=== PATIENT | male | born 1960 | race Two or more races ===

== ENCOUNTER 2025-02-28 06:30 | Day surgery (SDC) | payer OTHER, SELFPAY ==
--- NOTE | 2025-02-26 14:28 | ESHP_ITS ---
RE: TANNA VILLASEÑOR : 1960 DATE OF ADMISSION: 02/28/2025 HISTORY OF PRESENT ILLNESS: The patient is a 64-year-old gentleman who was referred to me with history of prostatism and prostatic obstruction. He has nocturia 1-2 times. Urinary flow is fair. No burning. No blood in the urine. PAST SURGICAL HISTORY: None. SOCIAL HISTORY: He has 4 children. PAST MEDICAL HISTORY: He is diabetic and he does not have any history of hypertension. HOME MEDICATIONS: He takes; 1. Thyroid medication. 2. Metformin. 3. Cholesterol. ALLERGIES: NONE KNOWN. PHYSICAL EXAMINATION: HEENT: Normal. NECK: Supple. LUNGS: Clear. CARDIOVASCULAR: Heart sounds are normal. ABDOMEN: Soft without any organomegaly. No guarding. No rigidity. EXTREMITIES: Normal. GENITOURINARY: Phallus is normal. Testes are down in the scrotum. RECTAL: Moderately enlarged prostate with the right lobe mildly firm. LABORATORY DATA: His PSA is 9.2. IMPRESSION: 1. Prostatism. 2. Prostatic obstruction. 3. Elevated PSA of 9.2. PLAN: Cystoscopy and transrectal prostatic ultrasound with ultrasound-guided prostatic needle biopsy. Planned procedure, risks, and complications have been discussed with the patient. The patient has understood them and agreed to proceed. Thank you very much for your kind referral. cc: MARIA ELENA Davis DT: 13:38:43 TT: 14:27:00 Ref: [id number] - TID: [id number]
--- NOTE | 2025-02-27 06:48 | EKG_ITS ---
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
[2025-02-27 07:03] VITALS: BMI 32.5
[2025-02-27 07:50] LABS: Collection Type, Urine Clean Catch; Squamous Epithelial Cell,Urine 0 /hpf (0-5)
[2025-02-27 09:04] LABS: Bilirubin,Urine Negative (Negative); Blood,Urine Trace (Negative); Clarity,Urine Clear (Clear/Hazy); Color,Urine Lt-Yellow (Lt Yel-Yel); Glucose, Urine Negative (Negative); Hyaline Casts,Urine < 1 /hpf (0-1); Ketones,Urine Negative (Negative); Leukocyte Esterase,Urine Negative (Negative); Nitrite,Urine Negative (Negative); Protein,Urine Negative (Neg - Trace); RBC,Urine 4 /hpf (0-3); Specific Gravity,Urine 1.025 (1.001-1.035); Urobilinogen,Urine Negative mg/dL (0.0-1.0); WBC,Urine 1 /hpf (0-5)
[2025-02-27 09:05] LABS: Basophils # (Auto) 0.1 Thou/mm3 (0.0-0.2); Basophils % (Auto) 1 % (0-2.5); Eosinophils # (Auto) 0.1 Thou/mm3 (0.0-0.5); Eosinophils % (Auto) 1 % (0-10); Hemoglobin 15.2 g/dL (13.5-16.0); Immature Granulocytes % (Auto) 1 % (0-0); Immature Granulocytes Auto 0.07 Thou/mm3 (0.00-0.00); Lymphocytes % (Auto) 39 % (10-50); Mean Corpuscular HGB Conc 33.8 g/dl (31.0-37.0); Mean Corpuscular Volume 92 fL (80-100); Monocytes # (Auto) 0.6 Thou/mm3 (0.0-0.8); Monocytes % (Auto) 7 % (0-12); Neutrophils # (Auto) 3.9 Thou/mm3 (1.8-7.7); Neutrophils % (Auto) 51 % (37-80); Nucleated Red Blood Cell % 0 /100 WBC (0); Platelet Count 238 Thou/mm3 (140-440); RDW Standard Deviation 43.8 fL (35.1-43.9); White Blood Count 7.6 Thou/mm3 (3.8-10.6)
[2025-02-27 09:19] LABS: Alanine Aminotransferase 26 U/L (10-49); Albumin, Serum 4.7 gm/dL (3.4-4.8); Albumin/Globulin Ratio 1.6 (1.2-2.2); Alkaline Phosphatase 48 U/L (46-116); Anion Gap 8 (7-16); Aspartate Amino Transferase 25 U/L (0-34); BUN/Creatinine Ratio 24 Ratio (12-20); Bilirubin,Total 1.1 mg/dL (0.3-1.2); Blood Urea Nitrogen 22 mg/dL (9-23); Calcium 9.7 mg/dL (8.3-10.6); Calcium (Corrected) 9.7 mg/dL (8.5-10.1); Carbon Dioxide 29.1 mMol/L (20.0-31.0); Chloride 102 mMol/L (98-107); Creatinine (Component) 0.9 mg/dL (0.6-1.3); Estimated Creatinine Clearance 89.6 mL/min (>60); Glucose 107 mg/dL (74-106); Osmolality,Calculated 280 (275-295); Sodium 139 mMol/L (136-145); Total Protein 7.7 gm/dL (5.7-8.2); eGFR > 60 See Note
--- NOTE | 2025-02-27 12:42 | ESHP_ITS ---
RE: TANNA VILLASEÑOR : 1960 DATE OF ADMISSION: 02/28/2025 HISTORY OF PRESENT ILLNESS: A 64-year-old gentleman Thai-speaking with nocturia 1-2 times. Urinary flow is fair. No burning. No blood in the urine. PAST SURGICAL HISTORY: None. SOCIAL HISTORY: He has 4 children. PAST MEDICAL HISTORY: He is a borderline diabetic. There is no history of hypertension. HOME MEDICATIONS: He is on, 1. Metformin. 2. Cholesterol medication. 3. Thyroid medication. ALLERGIES: NONE KNOWN. LABORATORY DATA: His PSA is 9.2. PHYSICAL EXAMINATION: HEENT: Normal. NECK: Supple. LUNGS: Clear. CARDIOVASCULAR: Heart sounds are normal. ABDOMEN: Soft without any organomegaly. No guarding. No rigidity. EXTREMITIES: Normal. GENITOURINARY: Phallus is normal. Testes are down to scrotum. RECTAL: Revealed moderately enlarged prostate with the right lobe mildly firm. PLAN: Cystoscopy and transrectal prostatic ultrasound with ultrasound-guided prostatic needle biopsy. Planned procedure, risks and complications have been discussed with the patient. The patient has understood them and agreed to proceed. DT: 12:10:23 TT: 12:40:00 Ref: [id number] - TID: [id number]
[2025-02-28 07:08] VITALS: BP 130/88; PULSE 66; RESP 14; TEMP 36.6; O2SAT 96; BMI 32.5
[2025-02-28] MEDS: RINGERS LACTATED 1000 ML 1,000 ML 20 ML IV (07:31)
[2025-02-28 09:22] VITALS: BP 132/77; PULSE 71; RESP 15; TEMP 36.3; O2SAT 95
--- NOTE | 2025-02-28 09:22 | SUR.PHASEII ---
0922: Pt. AAOx4, vitals stable, breathing unlabored, no complaint of pain or nausea, no dressing in place, no active bleed noted, report received from Jesus MAYFIELD and Osito MORENO.
[2025-02-28 09:27] VITALS: BP 119/71; PULSE 81; RESP 15; TEMP 36.2; O2SAT 98
[2025-02-28 09:32] VITALS: BP 115/73; PULSE 73; RESP 17; TEMP 36.2; O2SAT 98
[2025-02-28 09:37] VITALS: BP 128/83; PULSE 78; RESP 12; TEMP 36.2; O2SAT 95
[2025-02-28 09:52] VITALS: BP 119/71; PULSE 61; RESP 15; TEMP 36.3; O2SAT 97
--- NOTE | 2025-02-28 10:00 | SUR.PHASEII ---
1000: Pt. AAOx4, vitals stable, breathing unlabored, no complaint of pain or nausea, no dressing in place, no active bleed noted, pt. tolerated sips of water well, pt. ambulated to wheelchair with steady gait and no assist, no complications. Gave discharge instructions to the pt. and his ride using manager payer, both verbalized understanding and had no further questions. Pt. left with all personal belongings.
--- NOTE | 2025-02-28 10:21 | ESOP_ITS ---
RE: TANNA VILLASEÑOR : 1960 DATE OF OPERATION: 02/28/2025 PREOPERATIVE DIAGNOSES: Prostatism, prostatic obstruction, and elevated PSA of 9.2. POSTOPERATIVE DIAGNOSES: Prostatism, prostatic obstruction, and elevated PSA of 9.2. PROCEDURES PERFORMED: Cystoscopy, urethral dilatation, transrectal prostatic ultrasound with ultrasound-guided prostatic needle biopsy. ANESTHESIA: Monitored anesthesia by Mr. Jesus CRNA. INDICATION: The patient is a 64-year-old gentleman with nocturia 1-2 times with elevated PSA of 9.2. Rectally, he has a moderately sized prostate with mild firmness on the right prostatic lobe. The patient was now scheduled to have cystoscopy, transrectal prostatic ultrasound with ultrasound-guided prostatic needle biopsy. Planned procedure, risks and complications have been discussed with the patient. The patient understood them and agreed to proceed. DESCRIPTION OF PROCEDURE: After the patient was brought to the operating table under adequate monitored anesthesia and dorsal lithotomy position, parts were prepped and draped in the usual fashion. Cystoscopy was then carried out, which revealed adequate urethral meatus, normal-appearing urethra. The prostate revealed bilobed moderate-sized prostate. Residual urine 3 ounces yellow and clear and was sent for culture and sensitivity examination. There are no intravesical stones or tumors. Ureteral orifices were found to be normal in position and appearance. Scope was withdrawn. The patient was then turned in left lateral position. Transrectal prostatic ultrasound was carried out. Biopsies were obtained from both lobes using ultrasound guidance. Prostatic volume was measured at 23.5 cubic centimeter. The patient tolerated the entire procedure well and left the room in good condition. DT: 09:35:10 TT: 10:19:00 Ref: [id number] - TID: [id number]
== END 2025-02-28 10:00 | disposition home or self-care (01) ==
PROVIDERS: Anesthesiology; PCP Physician Assistant; Referring Provider Surgery; Visit Provider Surgery
PROC: 0TJB8ZZ Inspection of Bladder, Via Natural or Artificial Opening Endoscopic (ICD-10-PCS; CPT 52000; principal; 2025-02-28 08:30)
PROC: (CPT 55700; 2025-02-28 08:30)
DX: C61 Malignant neoplasm of prostate (principal); N40.1 Benign prostatic hyperplasia with lower urinary tract symptoms; N13.8 Other obstructive and reflux uropathy; E11.9 Type 2 diabetes mellitus without complications
CPT/HCPCS: 55700; 76942; 52000; 36415; 80053; 81001; 85025; 87086; 93005; A4217; A4649; J0131; J0694; J2250; J2704; J3010; J3490; J7120; J1596

== ENCOUNTER → 2025-03-19 | Outpatient (CLI) | payer OTHER, SELFPAY ==
--- NOTE | 2025-03-19 08:29 | XR_ITS ---
Examination: Transrectal prostate sonography complete TECHNIQUE: Grayscale transrectal sonographic images prostate Date and time: March 19, 2025 0900 hours INDICATIONS: Elevated PSA on laboratory examination 2 months ago FINDINGS: Prostate 4.5 x 3.3 x 4.7 cm volume 37 cc 6 mm prostate cysts, no solid nodules IMPRESSION: Mild prostatomegaly, no prostate nodules
== END | disposition home or self-care (01) ==
PROVIDERS: PCP Physician Assistant; Referring Provider Physician Assistant; Visit Provider Physician Assistant
DX: N40.0 Benign prostatic hyperplasia without lower urinary tract symptoms (principal)
CPT/HCPCS: 76872

== ENCOUNTER → 2025-04-01 | Outpatient (CLI) | payer OTHER, SELFPAY ==
--- NOTE | 2025-04-01 16:28 | XR_ITS ---
Examination: CT pelvis without intravenous contrast. 2-D sagittal and coronal reconstructions. Date and time of exam:April 01, 2025 1442 hours INDICATIONS: Diagnosis malignant neoplasm prostate staging CTDI: vol (mGy) :10.3 DLP: (mGycm) : 381 Technique: Multiple 3 mm axial sections of the pelvis have been obtained with the 64 slice high resolution scanner. 2-D sagittal and coronal reconstructions. Low dose protocols were performed. One or more of the following dose reduction techniques were used; automated exposure control, adjustment of the mA and/or KV according to patient size, use of iterative reconstruction technique. Findings: Normal appendix No common iliac external iliac or common femoral significant lymphadenopathy Normal seminal vesicles Prostate is irregular in contour AP dimension 4.5 cm mediolateral dimension 6.4 cm Minimal thickening of the urinary bladder wall up to 5 mm Multiple subcentimeter sclerotic foci in the hips and bones of the pelvis IMPRESSION: Prostatomegaly Normal seminal vesicles No pelvic lymphadenopathy Suspicious for early osteoblastic metastatic disease, recommend whole body bone scan follow up
== END | disposition home or self-care (01) ==
PROVIDERS: PCP Physician Assistant; Referring Provider Surgery; Visit Provider Surgery
DX: N40.0 Benign prostatic hyperplasia without lower urinary tract symptoms (principal); C61 Malignant neoplasm of prostate
CPT/HCPCS: 72192

== ENCOUNTER → 2025-04-03 | Outpatient (CLI) | payer OTHER, SELFPAY ==
--- NOTE | 2025-04-03 13:30 | XR_ITS ---
Examination: Bone scan whole body, radioisotope Date and time of exam: April 03, 2025 1306 hours INDICATIONS: Recent diagnosis prostate carcinoma staging Technique: Study has been performed with intravenous administration of 24.3 mci 99M technetium MDP. Anterior, posterior whole body images are obtained. Images have been obtained including the lower extremities. Findings: Minor asymmetric uptake about the left knee and left ankle Increased uptake posterior left rib, likely ninth rib and right ninth rib anteriorly IMPRESSION: Increased uptake posterior left ninth rib and right anterior ninth rib, recommend bilateral rib series follow-up
== END | disposition home or self-care (01) ==
PROVIDERS: Referring Provider Surgery; Visit Provider Surgery
DX: R93.7 Abnormal findings on diagnostic imaging of other parts of musculoskeletal system (principal); C61 Malignant neoplasm of prostate
CPT/HCPCS: 78306; A9503

== ENCOUNTER → 2025-04-11 | Outpatient (CLI) | payer OTHER, SELFPAY ==
--- NOTE | 2025-04-11 10:39 | XR_ITS ---
Examination: Bilateral ribs with PA chest 5 views TECHNIQUE: Upright PA chest, RPO and LPO right and left ribs total 5 views Date and time: 12/12/2024 1121 hours INDICATIONS: Recent diagnosis prostate carcinoma, nuclear medicine bone scan April 03, 2025 increased uptake posterior left ninth rib and right ninth rib anteriorly FINDINGS: Normal heart size Lungs are clear. Moderate osteopenia. No osteoblastic metastatic rib lesions depicted IMPRESSION: No osteoblastic rib lesions depicted
== END | disposition home or self-care (01) ==
PROVIDERS: PCP Physician Assistant; Referring Provider Physician Assistant; Visit Provider Physician Assistant
DX: M85.88 Other specified disorders of bone density and structure, other site (principal)
CPT/HCPCS: 71110

== ENCOUNTER → 2025-06-10 | Outpatient (CLI) | payer OTHER, SELFPAY ==
--- NOTE | 2025-06-10 14:45 | XR_ITS ---
EXAMINATION: PET/CT FUSION SKULL TO THIGH EXAM DATE AND TIME: June 10, 2025, 1526 hours INDICATIONS: Adrenal cancer, staging, diagnosis malignant neoplasm prostate CTDI:vol (mGy) 7.33 DLP: (mGycm) 669.45 PROCEDURE: 17.3 mCi FDG was administered intravenously To allow for distribution and uptake of radiotracer, the patient was allowed to rest quietly in a shielded room. Imaging was performed on an integrated 16-slice PET/CT scanner, with scanning from the skull base to the mid thigh. Serum blood glucose at the time of the injection was measured 87 mg/dL. CT scanning was performed without oral or intravenous contrast material. FINDINGS: Head and Neck: There is no samson hypermetabolism in the neck. The visualized portions of the brain are normal in appearance on CT. Chest: There is no samson hypermetabolism in the chest. There are no pulmonary nodules. Abdomen and Pelvis: There is no samson hypermetabolism in retroperitoneal or pelvic chains. The spleen is normal in size and FDG avidity. Musculoskeletal: Marrow uptake is within normal range. IMPRESSION: No hypermetabolic tumor mass is noted No adrenal mass lesions No pathologic abdominal or pelvic lymphadenopathy Normal seminal vesicles Transverse prostate dimension 5.5 cm
== END | disposition home or self-care (01) ==
PROVIDERS: Referring Provider Physician Assistant; Visit Provider Physician Assistant
DX: N42.89 Other specified disorders of prostate (principal); C74.90 Malignant neoplasm of unspecified part of unspecified adrenal gland
CPT/HCPCS: 78815; A9552